=== PATIENT | female | born 1990 | race Two or more races ===

== ENCOUNTER 2025-01-07 22:30 | Emergency (ER) | payer MEDICAID, SELFPAY ==
[2025-01-07 22:31] VITALS: BMI 45.1
[2025-01-07 22:48] VITALS: BP 144/90; PULSE 68; RESP 20; TEMP 37; O2SAT 97
--- NOTE | 2025-01-07 22:53 | XR_ITS ---
Examination: Abdomen sonogram, Limited Date and time of exam: January 07, 2025 11:30 PM Indications: Epigastric pain and vomiting beginning today Technique: Real-time garrido scale transabdominal sonographic images of the upper abdomen obtained. Findings: Minimal gallbladder sludge No gallstones Common bile duct 0.3 cm Pancreatic head 3.4 cm Liver 20.5 cm fatty infiltration lobular contour No focal liver lesions Normal hepatopedal portal venous flow Impression: Minimal gallbladder sludge, negative for cholelithiasis, negative for cholecystitis Significant hepatomegaly fatty infiltration lobular contour, consider primary hepatocellular disease, no focal liver lesions
--- NOTE | 2025-01-07 22:53 | EDRME_ITS ---
Rapid Medical Screening Exam [facility] Arrival date/time: 01/07/25 22:30 34F with history of DM presents to ED with 1 day of RUQ/epigastric pain that radiates to back, as well as some N/V. Chief Complaint: Abdominal Pain Vital signs: Vital Signs Temperature 98.6 F 01/07/25 22:48 Pulse Rate 68 01/07/25 22:48 Respiratory Rate 20 01/07/25 22:48 Blood Pressure 144/90 H 01/07/25 22:48 Pulse Oximetry (%) 97 01/07/25 22:48 Oxygen Delivery Method Room Air 01/07/25 22:48
[2025-01-07] MEDS: ONDANSETRON ODT 4 MG TABRAP PO (22:58)
[2025-01-07 23:12] LABS: Basophils # (Auto) 0.0 Thou/mm3 (0.0-0.2); Basophils % (Auto) 1 % (0-2.5); Eosinophils # (Auto) 0.2 Thou/mm3 (0.0-0.5); Eosinophils % (Auto) 3 % (0-10); Hematocrit 37.4 % (36.0-46.0); Hemoglobin 11.9 g/dL (12.0-16.0); Immature Granulocytes Auto 0.02 Thou/mm3 (0.00-0.00); Lymphocytes # (Auto) 2.4 Thou/mm3 (1.0-4.8); Lymphocytes % (Auto) 32 % (10-50); Mean Corpuscular HGB Conc 31.8 g/dl (31.0-37.0); Mean Corpuscular Hemoglobin 23.6 pg (25.0-35.0); Mean Corpuscular Volume 74 fL (80-100); Monocytes # (Auto) 0.6 Thou/mm3 (0.0-0.8); Monocytes % (Auto) 8 % (0-12); Neutrophils # (Auto) 4.1 Thou/mm3 (1.8-7.7); Neutrophils % (Auto) 55 % (37-80); Nucleated Red Blood Cell # 0.00 Thou/mm3 (0.00-0.00); Nucleated Red Blood Cell % 0 /100 WBC (0); Platelet Count 327 Thou/mm3 (140-440); RDW Standard Deviation 42.1 fL (36.4-46.3); Red Blood Count 5.04 Miln/mm3 (4.00-5.20); White Blood Count 7.4 Thou/mm3 (3.6-11.0)
[2025-01-07 23:30] LABS: Alanine Aminotransferase 19 U/L (10-49); Albumin, Serum 4.3 gm/dL (3.5-5.0); Albumin/Globulin Ratio 1.9 (1.2-2.2); Alkaline Phosphatase 80 U/L (46-116); Amylase 258 U/L (30-118); Anion Gap 8 (7-16); Aspartate Amino Transferase 13 U/L (0-34); BUN/Creatinine Ratio 10 Ratio (12-20); Bilirubin,Total 0.2 mg/dL (0.3-1.2); Blood Urea Nitrogen 9 mg/dL (9-23); Calcium 9.5 mg/dL (8.3-10.6); Calcium (Corrected) 9.5 mg/dL (8.5-10.1); Carbon Dioxide 29.5 mMol/L (20.0-31.0); Chloride 101 mMol/L (98-107); Creatinine (Component) 0.9 mg/dL (0.6-1.3); Estimated Creatinine Clearance 122.4 mL/min (>60); Globulin 2.3 gm/dL (2.3-3.5); Glucose 294 mg/dL (74-106); Osmolality,Calculated 285 (275-295); Potassium 4.1 mMol/L (3.4-5.1); Sodium 138 mMol/L (136-145); Total Protein 6.6 gm/dL (5.7-8.2); eGFR > 60 See Note
[2025-01-07 23:44] LABS: Collection Type, Urine Clean Catch
[2025-01-07 23:57] LABS: Bacteria,Urine Rare; Bilirubin,Urine Negative (Negative); Blood,Urine Negative (Negative); Clarity,Urine Turbid (Clear/Hazy); Color,Urine Yellow (Lt Yel-Yel); Culture Indicated,Urine Contaminated; Glucose, Urine 3+ (Negative); Ketones,Urine Trace (Negative); Leukocyte Esterase,Urine Positive (Negative); Nitrite,Urine Negative (Negative); PH,Urine 6.0 (5.0-7.0); Protein,Urine 1+ (Neg - Trace); RBC,Urine 6 /hpf (0-3); Specific Gravity,Urine 1.044 (1.001-1.035); Squamous Epithelial Cell,Urine 41 /hpf (0-5); Urobilinogen,Urine 2.0 mg/dL (0.0-1.0); WBC,Urine 22 /hpf (0-5)
[2025-01-08 00:08] LABS: HCG Qualitative,Urine Negative
[2025-01-08 00:40] VITALS: BP 170/106; PULSE 65; RESP 19; TEMP 36.4; O2SAT 98
--- NOTE | 2025-01-08 01:03 | PD.EDABDPN ---
ED Abdominal Pain RME/HPI General Chief Complaint: Abdominal Pain Stated complaint: RIGHT UPPER ABDOMINAL PAIN, VOMITING Arrival date/time: 01/07/25 22:30 RME / HPI RME / HPI narrative: 01/07/25 22:30 34F with history of DM presents to ED with 1 day of RUQ/epigastric pain that radiates to back, as well as some N/V. Dr. Cardoza?s Main ED Evaluation: 34yo female with a history of IDDM presents to the ED for a chief complaint of RUQ pain that radiates to her back for the last few hours. Patient reports associated nausea and vomiting. Denies any dysuria, fever, chills, or any other associated symptoms. NKA. Related Data Home Medications ?Medication ?Instructions ?Recorded ?Confirmed insulin glargine 100 unit/mL 10 unit subcut QDAY 12/08/23 12/08/23 subcutaneous solution (Lantus U-100 Insulin) metformin 1,000 mg tablet 1,000 mg PO BID 12/08/23 12/08/23 Previous Rx's ?Medication ?Instructions ?Recorded dicyclomine 20 mg tablet 20 mg PO QID PRN abdominal pain 01/08/25 #20 tabs ondansetron 4 mg disintegrating 4 mg PO Q6H PRN nausea and 01/08/25 tablet vomiting #20 tabs Allergies Allergy/AdvReac Type Severity Reaction Status Date / Time No Known Allergies Allergy Verified 09/25/22 18:23 Review of Systems Review of Systems Systems Reviewed: All systems reviewed, normal except as documented Past Medical History Past Medical History CARDIAC: Negative Congestive Heart Failure RESPIRATORY: Negative Chronic Obstructive Pulmonary Disease (COPD) GENITOURINARY: Negative Renal Disease ENDOCRINE: Positive Diabetes Mellitus Type 2; Negative Diabetes Mellitus Type 1 Social History SMOKING STATUS: Never smoker ED Exam Narrative Physical exam: Generally patient is alert and in no obvious distress and obese, heart regular rate and rhythm, lungs clear to auscultation equal bilaterally, abdomen soft bowel sounds present nondistended mild right upper quadrant abdominal tenderness without rebound, skin is warm pale and dry, neurologic exam no focal motor deficits [place] Coma Scale 15 Course Quality Measures none Orders Category Date Time Status US gall bladder Stat Exams 01/07/25 22:53 Completed Amylase Stat Lab 01/07/25 23:03 Completed CBC Stat Lab 01/07/25 23:03 Completed CMP [Comprehensive Metabolic Panel] Stat Lab 01/07/25 23:03 Completed HCG Qualitative,Urine Stat Lab 01/07/25 23:36 Completed Urinalysis, C/S if Indicated Stat Lab 01/07/25 23:36 Completed Dicyclomine Inj [Bentyl Inj] Med 01/08/25 01:27 Once 20 mg IM X1 ONE Ondansetron Odt [Zofran Odt] Med 01/07/25 22:53 Discontinued 4 mg PO X1 ONE Vital Signs Vital signs: Vital Signs Temperature 98.6 F 01/07/25 22:48 Pulse Rate 68 01/07/25 22:48 Respiratory Rate 20 01/07/25 22:48 Blood Pressure 144/90 H 01/07/25 22:48 Pulse Oximetry (%) 97 01/07/25 22:48 Oxygen Delivery Method Room Air 01/07/25 22:48 Abdominal Pain MDM MDM Narrative MDM Narrative:: Scribe Attestation: 01/08/25 - Edna Rubio am scribing for and in the presence of Dr. Cardoza. I interpreted all labs. Patient has no urinary complaints. LFTs are essentially normal. No leukocytosis. Gallbladder ultrasound showed possible mild sludge but no stones. No evidence of wall thickening or Romain cholecystic fluid. Patient was given Bentyl 20 mg IM and will be discharged on Bentyl and Zofran to be taken as prescribed. Patient is stable for discharge to follow-up with her doctor for further treatment and evaluation. Patient data External records reviewed:: [facility] previous records (Per chart review, patient was seen here on 12/08/23 for cholelithiasis.) Clinical information provided by:: patient Social determinants that could affect healthcare access:: none Patient has the following chronic illnesses:: DM How is presenting disease/condition affected by chronic disease/condition?: uneffected by Evaluation data The following diagnostics were reviewed and interpreted by me:: lab results and radiology exam(s) Lab and/or radiology exams considered but not ordered:: none Interpretation Summary: [facility] Report Signed Patient: BERNY CHAMBERS [facility]. Record#: [id number] Birthdate: 1990 Age/Sex: 34 / F Location: [facility] Attending Dr: Ordering Physician: Romero Reyes PA-C Date of Service: 01/07/25 Procedure(s): US gall bladder Accession Number(s): [id number] cc: Demetris Umanzor MD; NO PRIMARY/FAMILY,PHYSICIAN; Romero Reyes PA-C~ Examination: Abdomen sonogram, Limited Date and time of exam: January 07, 2025 11:30 PM Indications: Epigastric pain and vomiting beginning today Technique: Real-time garrido scale transabdominal sonographic images of the upper abdomen obtained. Findings: Minimal gallbladder sludge No gallstones Common bile duct 0.3 cm Pancreatic head 3.4 cm Liver 20.5 cm fatty infiltration lobular contour No focal liver lesions Normal hepatopedal portal venous flow Impression: Minimal gallbladder sludge, negative for cholelithiasis, negative for cholecystitis Significant hepatomegaly fatty infiltration lobular contour, consider primary hepatocellular disease, no focal liver lesions Dictated By: Demetris Umanzor MD Signed By: <Electronically signed by Demetris Umanzor MD in OV> 01/08/25 0000 Medications / Prescriptions Medications or Prescriptions considered but not ordered:: none Medication administrations:: Medication Administration History Dicyclomine HCl (Dicyclomine Inj 10 Mg/Ml 2ml Vial) 20 mg IM X1 ONE Stop: 01/08/25 01:28 Discontinued Medications Ondansetron HCl (Ondansetron Odt 4 Mg Tabrap) 4 mg PO X1 ONE; Protocol Stop: 01/07/25 22:54 Last Admin: 01/07/25 22:58 Dose: 4 mg Documented By: SF see above Consultations Consultation(s) initiated? (list below): No Diagnosis Differential diagnosis abdominal pain: other (See MDM) Most likely diagnosis given after review of the tests above:: see clinical impression below Admission Indicated Admission indicated?: not indicated Admission Request Was there a request for admission?: No Disposition Plan Disposition Plan: Discharge Discharge Attestation Discharge Attestation: The patient and all family members were given an opportunity to ask questions and understood the discharge instructions. Discharge instructions specifically effects, indications for sooner follow up or return to the emergency department, and the expected course of current diagnosis. Patient condition: Stable Discharge Plan Plan Patient Disposition: HOME (Self Care) Prescriptions/Referrals Prescriptions/Med Rec: New dicyclomine 20 mg tablet 20 mg PO QID PRN (Reason: abdominal pain) Qty: 20 0RF ondansetron 4 mg tablet,disintegrating 4 mg PO Q6H PRN (Reason: nausea and vomiting) Qty: 20 0RF No Action insulin glargine [Lantus U-100 Insulin] 100 unit/mL Solution 10 unit SUBCUT QDAY metformin 1,000 mg Tablet 1,000 mg PO BID Referrals: No Primary/Family,Physician [Primary Care Provider] - In 1 week Problem List Clinical Impression: Abdominal pain Patient/Caregiver Discharge Instructions Education Materials: Abdominal Pain Additional Instructions: Medication as prescribed. Avoid hot spicy greasy fatty foods. Follow-up with your doctor. Return to ER as needed or if condition worsens. Print Language: Polish Stand Alone Forms: Any Award Info., Patient Portal Info Letter
[2025-01-08] MEDS: DICYCLOMINE INJ 10 MG/ML 2ML VIAL 20 MG IM (01:48)
[2025-01-08 01:51] VITALS: BP 155/96; PULSE 58; RESP 18; O2SAT 100
[2025-01-08 01:55] VITALS: BP 155/96; PULSE 58; RESP 18; O2SAT 100
== END 2025-01-08 01:56 | disposition home or self-care (01) ==
PROVIDERS: Physician Assistant; Emergency Provider Emergency Medicine
DX: K82.8 Other specified diseases of gallbladder (principal); K76.0 Fatty (change of) liver, not elsewhere classified
CPT/HCPCS: 36415; 76705; 80053; 81001; 81025; 82150; 85025; 96372; 99283; J0500; Q0162

== ENCOUNTER 2025-01-08 06:34 | Day surgery (SDC) | payer MEDICAID, SELFPAY ==
[2025-01-08] VITALS (12 sets, daily range): BP systolic 112–152; BP diastolic 65–92; PULSE 70–91; RESP 14–23; TEMP 36.6–37.1; O2SAT 95–100; BMI 45.1
--- NOTE | 2025-01-08 06:47 | XR_ITS ---
Examination: CT abdomen and pelvis without contrast. Coronal 3-D reconstructions. Sagittal 2-D reconstructions. Date and time of exam:January 08, 2025 0840 hours INDICATIONS: Right-sided flank pain with nausea vomiting today CTDI: vol (mGy): 14.2 DLP: (mGycm): 946 Technique: Axial images of the abdomen have been obtained, 3 mm slice thickness Intravenous contrast material has not been administered. Low dose protocols were performed. One or more of the following dose reduction techniques were used; automated exposure control, adjustment of the mA and/or KV according to patient size, use of iterative reconstruction technique. Findings: No focal liver or splenic lesions Gallbladder wall thickening and edema No pancreatic or adrenal mass. 1 mm lower pole nonobstructing left renal calculus, no hydronephrosis or ureteral calculi Tiny periaortic lymph nodes Aorta is not enlarged No bowel obstruction Normal appendix Scattered colonic diverticulosis, no diverticulitis Anteverted uterus Contracted urinary bladder Moderate disc narrowing L4-L5, L5-S1 Moderate narrowing hip joints IMPRESSION: Acute calculus cholecystitis
--- NOTE | 2025-01-08 06:49 | EDRME_ITS ---
Rapid Medical Screening Exam E Arrival date/time: 01/08/25 06:34 34-year-old female with medical history significant for insulin-dependent diabetes presents to the emergency department today for complaints of right- sided back pain right-sided abdominal pain nausea and vomiting patient was evaluated yesterday reports symptoms persist Chief Complaint: Abdominal Pain Vital signs: Vital Signs Temperature 98.6 F 01/08/25 06:42 Pulse Rate 91 01/08/25 06:42 Respiratory Rate 19 01/08/25 06:42 Blood Pressure 152/82 H 01/08/25 06:42 Pulse Oximetry (%) 97 01/08/25 06:42 Oxygen Delivery Method Room Air 01/08/25 06:42
[2025-01-08] MEDS: METOCLOPRAMIDE INJ 5 MG/ML VIAL 2 ML 10 MG IM (07:28)
[2025-01-08 07:49] LABS: Base Excess, Venous 2 (-3-3); O2 Saturation, Venous 76 % (96-97); PCO2, Venous 37 mmHg (36-56); PO2, Venous 39 mmHg (15-58); pH, Venous 7.45 (7.33-7.66)
[2025-01-08 07:50] LABS: Basophils # (Auto) 0.0 Thou/mm3 (0.0-0.2); Basophils % (Auto) 0 % (0-2.5); Eosinophils # (Auto) 0.0 Thou/mm3 (0.0-0.5); Eosinophils % (Auto) 0 % (0-10); Hematocrit 38.6 % (36.0-46.0); Hemoglobin 12.2 g/dL (12.0-16.0); Immature Granulocytes Auto 0.03 Thou/mm3 (0.00-0.00); Lymphocytes # (Auto) 1.2 Thou/mm3 (1.0-4.8); Lymphocytes % (Auto) 11 % (10-50); Mean Corpuscular HGB Conc 31.6 g/dl (31.0-37.0); Mean Corpuscular Hemoglobin 23.3 pg (25.0-35.0); Mean Corpuscular Volume 74 fL (80-100); Monocytes # (Auto) 0.5 Thou/mm3 (0.0-0.8); Monocytes % (Auto) 4 % (0-12); Neutrophils # (Auto) 9.8 Thou/mm3 (1.8-7.7); Neutrophils % (Auto) 85 % (37-80); Nucleated Red Blood Cell # 0.00 Thou/mm3 (0.00-0.00); Nucleated Red Blood Cell % 0 /100 WBC (0); Platelet Count 323 Thou/mm3 (140-440); RDW Standard Deviation 42.1 fL (36.4-46.3); Red Blood Count 5.23 Miln/mm3 (4.00-5.20); White Blood Count 11.6 Thou/mm3 (3.6-11.0)
[2025-01-08 07:56] LABS: Beta Hydroxybutyrate 0.1 mmol/L (<0.6)
[2025-01-08 08:10] LABS: Alanine Aminotransferase 20 U/L (10-49); Albumin, Serum 4.2 gm/dL (3.5-5.0); Albumin/Globulin Ratio 1.2 (1.2-2.2); Alkaline Phosphatase 69 U/L (46-116); Anion Gap 9 (7-16); Aspartate Amino Transferase 15 U/L (0-34); BUN/Creatinine Ratio 8 Ratio (12-20); Bilirubin,Total 0.3 mg/dL (0.3-1.2); Blood Urea Nitrogen 6 mg/dL (9-23); Calcium 9.3 mg/dL (8.3-10.6); Calcium (Corrected) 9.3 mg/dL (8.5-10.1); Carbon Dioxide 27.8 mMol/L (20.0-31.0); Chloride 100 mMol/L (98-107); Creatinine (Component) 0.8 mg/dL (0.6-1.3); Estimated Creatinine Clearance 137.7 mL/min (>60); Globulin 3.4 gm/dL (2.3-3.5); Glucose 332 mg/dL (74-106); Osmolality,Calculated 284 (275-295); Potassium 4.2 mMol/L (3.4-5.1); Sodium 137 mMol/L (136-145); Total Protein 7.6 gm/dL (5.7-8.2); eGFR > 60 See Note
[2025-01-08 08:32] LABS: Glucose Estimated Average 229 mg/dL (80-131); Hemoglobin A1C 9.6 % Hgb (4.8-6.0)
[2025-01-08 09:12] LABS: Amylase 238 U/L (30-118)
--- NOTE | 2025-01-08 09:43 | PD.EDABDPN ---
ED Abdominal Pain RME/HPI General Chief Complaint: Abdominal Pain Stated complaint: UPPER ABD PAIN AND BACK PAIN, VOMITING Time seen by provider: 01/08/25 08:20 Arrival date/time: 01/08/25 06:34 RME / HPI RME / HPI narrative: 01/08/25 06:34 34-year-old female with medical history significant for insulin-dependent diabetes presents to the emergency department today for complaints of right-sided back pain right-sided abdominal pain nausea and vomiting patient was evaluated yesterday reports symptoms persist DR. BARTH MAIN ED EVALUATION 34 year old female with history of insulin-dependent diabetes presents to the ED for evaluation of RUQ abdominal pain with radiation to right mid back today. Described as aching in sensation, rating 7/10 in severity. Accompanied by nausea and vomiting 2-3 times since 06:00 AM today. Reportedly was evaluated here for similar pain yesterday. States she received medication in the ER and discharged home with Bentyl and Zofran which she feels aggravated her pain. Denies fevers, chills, sweats, chest pain, cough, shortness of breath, diarrhea, constipation, diarrhea, or urinary symptoms. Related Data Home Medications ?Medication ?Instructions ?Recorded ?Confirmed insulin glargine 100 unit/mL 10 unit subcut QDAY 12/08/23 12/08/23 subcutaneous solution (Lantus U-100 Insulin) metformin 1,000 mg tablet 1,000 mg PO BID 12/08/23 12/08/23 Previous Rx's ?Medication ?Instructions ?Recorded dicyclomine 20 mg tablet 20 mg PO QID PRN abdominal pain 01/08/25 #20 tabs ondansetron 4 mg disintegrating 4 mg PO Q6H PRN nausea and 01/08/25 tablet vomiting #20 tabs Allergies Allergy/AdvReac Type Severity Reaction Status Date / Time No Known Allergies Allergy Verified 09/25/22 18:23 Review of Systems Review of Systems Systems Reviewed: All systems reviewed, normal except as documented Past Medical History Past Medical History ENDOCRINE: Positive Diabetes Mellitus Type 2 Family History FAMILY HISTORY: Positive Family Endocrine Disorders Surgical History SURGICAL: Positive Tonsillectomy Social History SMOKING STATUS: Never smoker ED Exam Narrative Physical exam: GENERAL APPEARANCE: alert and oriented x 4, well-developed, well-nourished HEENT: Normocephalic, atraumatic; pupils equal, round, reactive to light; EOMI; mucous membranes pink, moist; oropharynx clear NECK: Supple LUNGS: CTABL; no wheezes, no rales, no rhonchi HEART: Regular rate, regular rhythm; normal S1, S2; no murmurs ABDOMEN: non distended; normal BS; soft, RUQ tenderness, no guarding, no rebound; no masses, no organomegaly, no hernia BACK: no CVA tenderness EXTREMITIES: atraumatic; no edema NEUROLOGIC: awake; alert and oriented x4; cranial nerves II-XII grossly intact; no focal sensory or motor deficits PSYCHIATRIC: appropriate mood and affect SKIN: warm, dry, normal color; no rashes Course Quality Measures none Orders Category Date Time Status Patient Condition Routine Admission 01/08/25 12:[address] in Surgical Day Care Routine Admission 01/08/25 12:14 Active Activity as Tolerated Routine Care 01/08/25 12:14 Ordered NPO NOW Care 01/08/25 10:51 Active Obtain Written Consent For: NOW Care 01/08/25 12:14 Active Diet NPO (NOW) Diet 01/08/25 10:[address] abdomen pelvis wo con Stat Exams 01/08/25 06:47 Completed A1C [Glycohemoglobin w (eAG)] Stat Lab 01/08/25 07:38 Completed Amylase Stat Lab 01/08/25 07:38 Completed Beta Hydroxybutyrate Stat Lab 01/08/25 07:38 Completed CBC Stat Lab 01/08/25 07:38 Completed Comprehensive Metabolic Panel Stat Lab 01/08/25 07:38 Completed VBG [Venous Blood Gas] Stat Lab 01/08/25 07:38 Completed Insulin Regular Med 01/08/25 12:31 Discontinued 3 unit IV X1 ONE Metoclopramide Inj [Reglan Inj] Med 01/08/25 06:47 Discontinued 10 mg IM X1 ONE Sodium Chloride 0.9% 1000 ml [Ns] 1,000 ml Med 01/08/25 11:48 Active IV 100 mls/hr Sodium Chloride 0.9% 1000 ml [Ns] 1,000 ml Med 01/08/25 12:15 Discontinued IV 100 mls/hr Code Status Routine Oth 01/08/25 12:14 Ordered Vital Signs Vital signs: Vital Signs Temperature 98.6 F 01/08/25 06:42 Pulse Rate 91 01/08/25 06:42 Respiratory Rate 19 01/08/25 06:42 Blood Pressure 152/82 H 01/08/25 06:42 Pulse Oximetry (%) 97 01/08/25 06:42 Oxygen Delivery Method Room Air 01/08/25 06:42 Pulse ox is 97% on room air which is adequate. Abdominal Pain MDM MDM Narrative MDM Narrative:: Clau Rubio, [place] scribing for and in the presence of Dr. Barth. Patient data External records reviewed:: [facility] previous records (I reviewed ED visit from earlier today ) Clinical information provided by:: patient Social determinants that could affect healthcare access:: none Patient has the following chronic illnesses:: insulin-dependent diabetes How is presenting disease/condition affected by chronic disease/condition?: exacerbated by Evaluation data The following diagnostics were reviewed and interpreted by me:: lab results and radiology exam(s) Lab and/or radiology exams considered but not ordered:: None Interpretation Summary: Ordering Physician: Constance TILLMAN)Carson NP Date of Service: 01/08/25 Procedure(s): CT abdomen pelvis wo [facility] Accession Number(s): [id number] cc: Constance TILLMAN),Carson SAM; Demetris Umanzor MD~ Examination: CT abdomen and pelvis without contrast. Coronal 3-D reconstructions. Sagittal 2-D reconstructions. Date and time of exam:January 08, 2025 0840 hours INDICATIONS: Right-sided flank pain with nausea vomiting today CTDI: vol (mGy): 14.2 DLP: (mGycm): 946 Technique: Axial images of the abdomen have been obtained, 3 mm slice thickness Intravenous contrast material has not been administered. Low dose protocols were performed. One or more of the following dose reduction techniques were used; automated exposure control, adjustment of the mA and/or KV according to patient size, use of iterative reconstruction technique. Findings: No focal liver or splenic lesions Gallbladder wall thickening and edema No pancreatic or adrenal mass. 1 mm lower pole nonobstructing left renal calculus, no hydronephrosis or ureteral calculi Tiny periaortic lymph nodes Aorta is not enlarged No bowel obstruction Normal appendix Scattered colonic diverticulosis, no diverticulitis Anteverted uterus Contracted urinary bladder Moderate disc narrowing L4-L5, L5-S1 Moderate narrowing hip joints IMPRESSION: Acute calculus cholecystitis Dictated By: Demetris Umanzor MD Signed By: <Electronically signed by Demetris Umanzor MD in OV> 01/08/25 0908 Medications / Prescriptions Medications or Prescriptions considered but not ordered:: None Medication administrations:: Medication Administration History Sodium Chloride (Ns) 1,000 mls @ 100 mls/hr IV .Q10H RAMILA Stop: 02/07/25 11:47 Last Admin: 01/08/25 11:57 Dose: 100 mls/hr Documented By: GM Discontinued Medications Sodium Chloride (Ns) 1,000 mls @ 100 mls/hr IV .Q10H RAMILA Stop: 02/07/25 12:14 Last Admin: 01/08/25 12:21 Dose: Not Given Documented By: ADAN Non-Admin Reason: Cancelled by Provider Insulin Human Regular (Insulin Hum Regular 1 Unit/0.01 Ml (Per Unit)) 3 unit IV X1 ONE Stop: 01/08/25 12:32 Last Admin: 01/08/25 12:40 Dose: 3 unit Documented By: RACQUEL Co-signed By: BY Metoclopramide HCl (Metoclopramide Inj 5 Mg/Ml Vial 2 Ml) 10 mg IM X1 ONE; Protocol Stop: 01/08/25 06:48 Last Admin: 01/08/25 07:28 Dose: 10 mg Documented By: LORENZO See above Consultations Consultation(s) initiated? (list below): Yes Consultation #1 (Physician, Specialty, Details): I spoke with general surgeon Dr. Lozano. Discussed patients PMHx, HPI, ED course, exam findings, labs, and radiology results. States he will come evaluate the patient in the ED. Time: 10:50 Consultation #2 (Physician, Specialty, Details): Surgeon Dr. Lozano has evaluated the patient in the ED. States she has known history of gallstones for several years and has been evaluated at [place]. States patient at this time has no pain. States plan for surgery was discussed with the patient and patient asked to have some time to talk to her before agreeing to the surgery. @ 11:48h pt agrees to having the surgery. Time: 11:25 Diagnosis Differential diagnosis abdominal pain: abdominal pain and other (cholelithiasis, cholecystitis) Most likely diagnosis given after review of the tests above:: Cholecystitis Admission Indicated Admission indicated?: indicated Admission Request Was there a request for admission?: Yes Admission Attestation Admission request attestation: Discussed case with [] from Hospitalist service regarding admission. Discussed patients ED course, exam findings, labs, and radiology results. The Hospitalist [agrees,declines] to accept the patient for admission. Disposition Plan Disposition Plan: Admit Discharge Plan Plan Patient Disposition: Other Care w/in Hosp ([facility]) Problem List Clinical Impression: Cholecystitis
[2025-01-08] MEDS: SODIUM CHLORIDE 0.9% 1000 ML 1,000 ML 100 ML IV (11:57)
[2025-01-08] MEDS: INSULIN HUM REGULAR 1 UNIT/0.01 ML (PER UNIT) 3 UNIT IV (12:40)
--- NOTE | 2025-01-08 14:45 | PD.SURHP ---
HPI Date of Admission 01/08/2025 Chief Complaint Chief Complaint: Patient is admitted with a diagnosis of acute cholecystitis with cholelithiasis HPI History of present illness revealed that the patient has had abdominal pain starting last evening and he came to the emergency room and was found to have cholelithiasis but was discharged after the pain relief by 2 AM. But by 6:00 in the morning she developed severe pain over the right upper quadrant and came back to the emergency room. This time a CT scan was performed which showed acute cholecystitis with possible sludge. Patient was diagnosed with gallstones back in last year when she came to the emergency room in November 2023. She was advised to have surgery but she never really had the surgery done. Patient has moved to live in [place] and that she went to the emergency room also and was treated with pain medication and discharged. At the present time patient also was complaining of severe nausea and vomiting from last night as well as this morning. She was given antinausea medicine but did not work according to her. Her past medical history consisted of diabetes mellitus and morbid obesity and she is using insulin to control diabetes. She is single and never has had any children or . Meds Home Medications and Allergies Home Medications ?Medication ?Instructions ?Recorded ?Confirmed ?Type insulin glargine 100 unit/mL 10 unit subcut QDAY 12/08/23 12/08/23 History subcutaneous solution (Lantus U-100 Insulin) metformin 1,000 mg tablet 1,000 mg PO BID 12/08/23 12/08/23 History Allergies Allergy/AdvReac Type Severity Reaction Status Date / Time No Known Allergies Allergy Verified 09/25/22 18:23 Exam Vital Signs Temp Pulse Resp BP Pulse Ox O2 Del Method 98.4 F 72 17 132/92 H 98 Room Air 01/08/25 11:05 01/08/25 11:05 01/08/25 11:05 01/08/25 11:05 01/08/25 11:05 01/08/25 11:05 Narrative Exam Physical examination revealed morbidly obese female who speaks Estonian. She is 5 foot 4 inches weighing 280 pounds with BMI of 45.2 Constitutional Constitutional: mild distress Routine Abdominal Exam Comments: Examination of the abdomen showed to be protuberant because of her obesity. Patient has some tenderness in the right upper quadrant on palpation with a positive Maki sign. Routine Rectal Exam Comments: Deferred Routine Exam Comments: Deferred Routine Extremities Exam Comments: Within normal limits Results Results: Laboratory Laboratory Narrative: Patient's laboratory workup showed mild leukocytosis with WBC of around 11,600 with a shift to the left with 85 neutrophils. Her glucose was 332 this morning Results: Imaging Imaging narrative: Ultrasound of the abdomen showed sludge and possible gallstones. CT scan showed acute cholecystitis with fluid collection around the gallbladder Assessment & Plan Additional Assessment Additional comments: Impression: Acute cholecystitis with cholelithiasis Diabetes mellitus Morbid obesity Plan Plan: I had a lengthy discussion with the patient about treatment options. She gets relief with morphine but she continues to have pain and leukocytosis. She is also come back for the second time within 24 hours for abdominal pain. With the finding of fluid collection around the CT scan patient seems to have acute cholecystitis and therefore requires surgery. I told her that procedure will be done laparoscopically and if that fails open cholecystectomy will be performed. The risk and her is still obesity which may make things difficult to evaluate especially if there inflamed. Possibility for open cholecystectomy also was mentioned to that. Patient also was told about the injury to the internal organs requiring further surgery. Patient is agreeable and will take her to the operating room as an emergency today. Quality Measures Quality Measures none
--- NOTE | 2025-01-08 16:47 | PD.SUROPNT ---
Date of Procedure 01/08/25 Pre Op Diagnosis Acute calculous cholecystitis Post Op Diagnosis Same Procedure Laparoscopic cholecystectomy Findings Patient was found to have acutely inflamed and distended gallbladder with thickening of the gallbladder wall and Romain cholecystic fluid collection and 2 large stone Procedure Description After endotracheal anesthesia was given the patient was placed in supine position and the abdomen was prepped with chloroprep solution and draped in a sterile manner. After time out was performed I injected a few cc of of half percent Marcaine with epinephrine below the umbilicus and I made an incision for about 3 cm in length. The fascia was cleaned and Veress needle was inserted to create a pneumoperitoneum up to 15 mmHg. Then introduced a 12 mm trocar and a 10 mm camera through the fascia and I inspected the intra-abdominal organs as well as the gallbladder and the liver. Another 5 mm trocar was inserted in the epigastric region under direct vision after injecting some local anesthesia. At this time the patient was kept in reverse Trendelenburg position with the left lateral tilt. The third 5 mm trocar was inserted over the mid axillary line under direct vision and a Reinaldo and Gevasquez grasper was used to hold the fundus of the gallbladder. The gallbladder was distended and inflamed with edema of the wall. The retraction was carried out by the spa assistant manager moving the fundus of the gallbladder towards the right shoulder of the patient to create enough traction. I placed a another 5 mm trocar in the midaxillary line just lateral to the rectus muscle under direct vision. I used a fenestrated grasper to retract the neck of the gallbladder laterally towards the patient's right hip. The Calot's triangle was exposed and I achieved the critical view of safety as follows: I dissected out the fatty tissue from the hepatocystic triangle and cleared this area. I also dissected inferior and posterior to the gallbladder to identify the cystic duct and the gallbladder wall. Then superiorly I dissected along the cystic plate up to lower one third third of the gallbladder to lift the gallbladder from the liver. At this time I confirmed that only 2 structures entering the gallbladder were cystic artery and the cystic duct. The common duct was seen distally but no dissection was carried out around the duct. I did not see any need for operative cholangiogram in this patient. The cystic duct was clipped doubly and then divided and cystic artery was similarly dealt with. Then the gallbladder was removed from the liver bed using Harmonic edward to control the small blood vessels as the dissection proceeded. Then the gallbladder was from the liver bed completely and delivered through the umbilical port using an Endopouch. The liver bed was coagulated with cautery to obtain satisfactory hemostasis. The trocars were pulled out from the abdominal cavity and the fascia at the umbilical incision was closed with interrupted 0 Ethibond. Subcutaneous tissues was closed with 3-0 chromic and injected a few cc of half percent Marcaine with epinephrine and the skin was closed with interrupted 4-0 nylon stitches at all the trocar sites. Dressing was applied with 2 x 2 and Tegaderm. Patient tolerated the procedure well and returned to recovery room in stable condition. Yeah Anesthesia GETA Pathology / specimen Other (Gallbladder and the stones) Estimated Blood Loss 25 Condition Stable Disposition PACU Surgeon Nay Blount MD Surgical Staff Operation Date: 01/08/25 14:15 Case Staff READINESS PARAPROFESSIONAL: Juan Jose Pelaez RNtractor engine mechanic: Sinai García
--- NOTE | 2025-01-08 16:56 | SUR.PHASEI ---
pt received to [facility]. vss. breathing even and unlabored with oral airway in place. dressings intact to abdomen. 4 ports 2x2 gauze with metapore tape. report from yogi hernandez and nurse lucia.
[2025-01-08] MEDS: ONDANSETRON INJ 2 MG/ML INJ 2 ML 4 MG IVP (17:53)
--- NOTE | 2025-01-08 18:26 | SUR.PHASEII ---
pt discharged to with and mother via wheelchair. all verbalize understanding of discharge instructions. denies pain states nausea better. tolerates po fluids. vss. breathing even and unlabored. dressings remain cdi x4.
== END 2025-01-08 18:26 | disposition home or self-care (01) ==
LOC: SERX 10:07 → S2EX 12:40
PROVIDERS: Nurse Practitioner Primary Care; Emergency Provider Emergency Medicine; Referring Provider Surgery; Visit Provider Surgery
PROC: 0FT44ZZ Resection of Gallbladder, Percutaneous Endoscopic Approach (ICD-10-PCS; CPT 47562; principal; 2025-01-08 14:00)
DX: K80.12 Calculus of gallbladder with acute and chronic cholecystitis without obstruction (principal); E11.9 Type 2 diabetes mellitus without complications; E66.01 Morbid (severe) obesity due to excess calories; Z68.42 Body mass index [BMI] 45.0-49.9, adult
CPT/HCPCS: 47562; 36415; 74176; 80053; 82010; 82150; 82803; 83036; 85025; 99284; A4217; A4649; J0690; J1100; J1815; J1885; J2250; J2405; J2704; J2765; J3010; J3490; J7030